=== PATIENT | female | born 1970 | race Caucasian/White ===

== ENCOUNTER 2019-04-25 12:25 | Inpatient (IN) ==
[2019-04-25] MEDS ORDERED: NICOTINE 21 MG/24 HR PATCH TRANSDERM PRN (13:24)
[2019-04-25] MEDS ORDERED: ACETAMINOPHEN 500 MG TABLET PO PRN (13:24)
[2019-04-25] MEDS ORDERED: cloNIDine 0.1 MG TABLET PO PRN (13:29)
[2019-04-25] MEDS ORDERED: HydrOXYzine PAMOATE 25 MG CAPSULE PO PRN (13:29)
[2019-04-25] MEDS ORDERED: LORazepam 2 MG/1 ML VIAL IV ONE (14:17)
[2019-04-25] MEDS: ONDANSETRON 4 MG/2 ML VIAL IV PRN ×2 (14:43→21:22)
[2019-04-25] MEDS: SODIUM CHLORIDE 0.9% 1,000 ML IV SCH ×2 (14:46→21:22)
[2019-04-25] MEDS: GABAPENTIN 300 MG CAPSULE PO SCH ×2 (15:56→20:09)
[2019-04-25 16:03] LABS: Basophils # 0.1 10*3/uL (0.0-0.2); Basophils % 0.4 % (0.0-0.8); Eosinophils # 0.1 10*3/uL (0.0-0.87); Eosinophils % 0.7 % (0.00-10.9); Hemoglobin 12.3 GM/DL (12.0-16.0); Immature Granulocytes % 0.4 %; Immature Granulocytes Absolute 0.04 #; Lymphocytes # 2.5 10*3/uL (1.4-4.0); Lymphocytes % 22.2 % (21.3-54.2); Mean Corpuscular HGB Conc 33.2 GM/DL (32-36); Monocytes % 5.3 % (1.7-12.7); Platelet Count 297 T/CUMM (130-400); Red Blood Count 4.02 MC/CUMM (3.8-5.5); Red Cell Distribution Width 13.2 % (9.3-17.3); White Blood Count 11.1 T/CUMM (4-12)
[2019-04-25 16:12] LABS: PT Patient Result 10.8 SECS (9.6-12.2)
[2019-04-25 16:24] LABS: Alanine Aminotransferase 19 U/L (13-56); Albumin 3.9 G/DL (3.4-5.0); Alkaline Phosphatase 42 U/L (45-117); Aspartate Amino Transferase 25 U/L (0-37); Blood Urea Nitrogen 17 MG/DL (7-18); Calcium 8.9 MG/DL (8.5-10.1); Estimated Glom Filtration Rate 60 ML/MIN; Glucose 90 MG/DL (74-106); Osmolality,Calculated 280.4 MOS/KG (273-304)
[2019-04-25 17:41] LABS: Apearance,Urine CLEAR (Clear); Bilirubin,Urine Negative (Negative); Blood, Urine Negative (Negative); Glucose,Urine (UA) Negative (Negative); Hyaline Casts,Urine 1 /LPF (0-3); Ketones,Urine 20 mg/dL (Negative); Mucus,Urine Few /LPF (Occasional); Nitrite,Urine Negative (Negative); Protein,Urine Negative; RBC,Urine 6 /HPF (0-4); Squamous Epithelial Cell,Urine Occasional /HPF (0-10); Urine Color Yellow (Yellow); Urine Specific Gravity 1.027 (1.001-1.035); Urine Urobilinogen < 2.0 EU/DL (0.2-1.0); WBC,Urine 2 /HPF (0-6)
[2019-04-25] MEDS: rOPINIRole 1 MG TABLET PO PRN (18:22)
[2019-04-25 18:30] LABS: Barbiturates Screen,Urine Negative (Negative); Benzodiazepines Screen,Urine Negative (Negative); Cannabinoid Screen,Urine Negative (Negative); Opiate Screen,Urine Positive (Negative); Phencyclidine Screen,Urine Negative (Negative)
[2019-04-25] MEDS: MELATONIN 3 MG TABLET PO PRN (20:08)
[2019-04-25] MEDS: traZODone 50 MG TABLET PO SCH (20:08)
[2019-04-25] MEDS: LORazepam 2 MG/1 ML VIAL IV PRN (20:09)
[2019-04-25] MEDS: QUEtiapine 100 MG TABLET PO SCH (20:09)
[2019-04-25] MEDS: DICYCLOMINE 10 MG CAPSULE PO PRN (20:46)
[2019-04-25] MEDS: METHOCARBAMOL 750 MG TABLET PO PRN (20:46)
[2019-04-25] MEDS: BUPRENORPHINE SL TAB 2 MG TABLET SL PRN (21:26)
[2019-04-26] MEDS: ONDANSETRON 4 MG/2 ML VIAL IV PRN ×2 (04:21→14:11)
[2019-04-26] MEDS: DICYCLOMINE 10 MG CAPSULE PO PRN ×2 (04:21→14:09)
[2019-04-26] MEDS: SODIUM CHLORIDE 0.9% 1,000 ML IV SCH ×3 (05:14→18:08)
[2019-04-26] MEDS: MULTIVITAMIN (CENTRUM) TABLET PO SCH (08:13)
[2019-04-26] MEDS: rOPINIRole 1 MG TABLET PO PRN ×2 (08:13→20:39)
[2019-04-26] MEDS: QUEtiapine 100 MG TABLET PO SCH ×2 (08:14→20:37)
[2019-04-26] MEDS: GABAPENTIN 300 MG CAPSULE PO SCH ×3 (08:14→20:37)
[2019-04-26] MEDS: BUPRENORPHINE SL TAB 2 MG TABLET SL PRN ×2 (08:14→20:38)
[2019-04-26] MEDS: FOLIC ACID 1 MG TABLET PO SCH (08:14)
[2019-04-26] MEDS: LORazepam 2 MG/1 ML VIAL IV PRN ×2 (14:09→20:40)
[2019-04-26] MEDS: traZODone 50 MG TABLET PO SCH (20:37)
[2019-04-27] MEDS: IBUPROFEN 600 MG TABLET PO PRN ×2 (02:41→13:20)
[2019-04-27] MEDS: METHOCARBAMOL 750 MG TABLET PO PRN ×3 (02:41→16:45)
[2019-04-27] MEDS: LORazepam 2 MG/1 ML VIAL IV PRN ×4 (02:47→20:12)
[2019-04-27] MEDS: DICYCLOMINE 10 MG CAPSULE PO PRN (08:06)
[2019-04-27] MEDS: rOPINIRole 1 MG TABLET PO PRN ×2 (08:06→20:09)
[2019-04-27] MEDS: BUPRENORPHINE SL TAB 2 MG TABLET SL PRN (08:06)
[2019-04-27] MEDS: QUEtiapine 100 MG TABLET PO SCH ×2 (08:07→20:15)
[2019-04-27] MEDS: FOLIC ACID 1 MG TABLET PO SCH (08:07)
[2019-04-27] MEDS: GABAPENTIN 300 MG CAPSULE PO SCH ×3 (08:07→20:09)
[2019-04-27] MEDS: MULTIVITAMIN (CENTRUM) TABLET PO SCH (08:07)
[2019-04-27] MEDS: ONDANSETRON 4 MG/2 ML VIAL IV PRN (08:13)
[2019-04-27] MEDS: DICLOFENAC 1.3% PATCH 5/PACK TRANSDERM SCH ×2 (11:45→20:09)
[2019-04-27] MEDS: SODIUM CHLORIDE 0.9% 1,000 ML IV SCH ×2 (13:25→16:06)
[2019-04-27] MEDS: traZODone 50 MG TABLET PO SCH (20:08)
[2019-04-28] MEDS: rOPINIRole 1 MG TABLET PO PRN ×2 (08:14→20:26)
[2019-04-28] MEDS: GABAPENTIN 300 MG CAPSULE PO SCH ×3 (08:14→20:22)
[2019-04-28] MEDS: FOLIC ACID 1 MG TABLET PO SCH (08:14)
[2019-04-28] MEDS: MULTIVITAMIN (CENTRUM) TABLET PO SCH (08:14)
[2019-04-28] MEDS: METHOCARBAMOL 750 MG TABLET PO PRN (08:14)
[2019-04-28] MEDS: QUEtiapine 100 MG TABLET PO SCH ×2 (08:15→20:23)
[2019-04-28] MEDS: DICLOFENAC 1.3% PATCH 5/PACK TRANSDERM SCH ×2 (08:19→20:26)
[2019-04-28] MEDS: LORazepam 2 MG/1 ML VIAL IV PRN (09:06)
[2019-04-28] MEDS: SODIUM CHLORIDE 0.9% 1,000 ML IV SCH (10:29)
[2019-04-28] MEDS: busPIRone 5 MG TABLET PO SCH ×2 (12:47→20:22)
[2019-04-28] MEDS: ONDANSETRON 4 MG/2 ML VIAL IV PRN (13:39)
[2019-04-28] MEDS: MELATONIN 3 MG TABLET PO PRN (20:25)
[2019-04-28] MEDS: IBUPROFEN 600 MG TABLET PO PRN (20:26)
[2019-04-29 07:39] VITALS: BP 109/81
[2019-04-29] MEDS: MULTIVITAMIN (CENTRUM) TABLET PO SCH (08:16)
[2019-04-29] MEDS: QUEtiapine 100 MG TABLET PO SCH (08:16)
[2019-04-29] MEDS: busPIRone 5 MG TABLET PO SCH (08:17)
[2019-04-29] MEDS: GABAPENTIN 300 MG CAPSULE PO SCH (08:17)
[2019-04-29] MEDS: DICLOFENAC 1.3% PATCH 5/PACK TRANSDERM SCH ×2 (08:17→08:20)
[2019-04-29] MEDS: FOLIC ACID 1 MG TABLET PO SCH (08:17)
[2019-04-29] MEDS: SODIUM CHLORIDE 0.9% 1,000 ML IV SCH (09:15)
== END 2019-04-29 10:05 | disposition home or self-care (01) | DRG 897 ==
LOC: SUATTDRO 12:50 → N.4E 12:50
PROVIDERS: ADMIT Family Medicine; ATTEND Internal Medicine